=== PATIENT | female | born 1960 | race Caucasian/White ===

== ENCOUNTER → 2017-10-16 | Outpatient (CLI) | payer OTHER ==
--- NOTE | 2017-10-20 16:31 | Diagnostic Imaging Report ---
#[id number] - MGSCRBIL #BILATERAL DIGITAL SCREENING MAMMOGRAM WITH CAD: 10/16/2017 Comparison is made to exam dated: 07/27/2016 mammogram - [facility]. Current study contains 4 films. There are scattered fibroglandular elements in both breasts. Current study was also evaluated with a Computer Aided Detection (CAD) system. There are benign calcifications in both breasts. No significant masses, calcifications, or other findings are seen in either breast. There has been no significant interval change. IMPRESSION: BENIGN There is no mammographic evidence of malignancy. A 1 year screening mammogram is recommended. The patient will be notified by letter of the results. Kevyn calloway/amita:10/20/2017 13:17:44 Smash Hand: Khushbu ACKERMAN(Rene)(M), [facility] letter sent: Compared to Prior B9 Mammogram BI-RADS: 2 Benign
== END | disposition home or self-care (01) ==
LOC: MAMMO 13:24
PROVIDERS: ATTEND Specialist
DX: Z12.31 Encounter for screening mammogram for malignant neoplasm of breast (principal)
CPT/HCPCS: 77067

== ENCOUNTER → 2018-01-01 | Outpatient (CLI) | payer OTHER ==
--- NOTE | 2018-01-01 13:43 | Diagnostic Imaging Report ---
PROCEDURE:CT CHEST WITHOUT CONTRAST COMPARISON:None. INDICATIONS: LUNG NODULE TECHNIQUE: Axial CT images of the chest were obtained from the lung apices through the adrenal glands without contrast. Coronal and sagittal reformations were made available for review. RADIATION DOSE: Total DLP: 555.8 mGy*cm Estimated effective dose: (DLP x 0.014 x size factor) mSv FINDINGS: Lymph nodes: No enlarged axillary, supraclavicular, mediastinal, or hilar lymph nodes. Thyroid/base of neck: Unremarkable. Heart \T\ Mediastinum:The heart is normal in size. Aorta and pulmonary artery are normal in size and morphology. Trace pericardial effusion. The esophagus is normal. Lungs: Right lung: Noncalcified nodule along the minor fissure measures 3 mm (image 60). Left lung: Calcified nodule in the anterior upper lobe measures 4 mm (2). Noncalcified nodule in the lateral upper lobe measures 3 mm (image 50). . Pleura: No pleural effusion or pneumothorax. Upper abdomen:There is diffuse hypoattenuation of the liver suggestive steatosis. Diffuse fatty atrophy of the pancreas without ossification or ductal dilatation. This was portions of the spleen, adrenal glands, and kidneys are unremarkable. Musculoskeletal:Mild degenerative changes of the lower cervical/upper lumbar spine. No focal osseous lesions. Soft tissues are unremarkable. CONCLUSION: 1. Calcified granuloma in the left upper lobe and tiny noncalcified nodules in the right and left upper lobes. Recommend annual surveillance with low dose screening CT of the chest if there are risk factors for malignancy. 2. Hepatic steatosis. Dictated by: Martita Givens M.D. on 01/01/2018 at 13:47 Electronically approved by: Martita Givens M.D. on 01/01/2018 at 13:47
== END ==
LOC: CT 11:38
PROVIDERS: ATTEND Internal Medicine
DX: R91.1 Solitary pulmonary nodule (principal)
CPT/HCPCS: 71250

== ENCOUNTER → 2019-02-04 | Outpatient (CLI) | payer BC ==
--- NOTE | 2019-02-04 12:49 | Diagnostic Imaging Report ---
EXAM: CT Chest WITHOUT intravenous contrast 02/04/2019 11:40 AM INDICATION: Pulmonary nodule COMPARISON: None TECHNIQUE: Chest was scanned utilizing a multidetector helical scanner from the lung apex through the level of the adrenal glands without administration of IV contrast. Coronal and sagittal reformations were obtained. Routine protocol was performed. IV CONTRAST: None RADIATION DOSE: Total DLP: 247.1 mGy*cm. Dose modulation, iterative reconstruction, and/or weight based adjustment of the mA/kV was utilized to reduce the radiation dose to as low as reasonably achievable. COMPLICATIONS: None FINDINGS: LINES/ TUBES: None. LUNGS AND AIRWAYS: The central airways are patent. No focal consolidation or pulmonary edema. Left upper lobe 5 mm calcified granuloma (series 2 image 57). No suspicious pulmonary nodules. PLEURA: The pleural spaces are clear. HEART AND MEDIASTINUM: The thyroid gland is absent. No supraclavicular, mediastinal, or hilar lymphadenopathy. No axillary, subpectoral, or internal mammary lymphadenopathy. The heart is not enlarged. No pericardial effusion. Scattered atherosclerotic calcifications of the thoracic aorta. UPPER ABDOMEN: Limited noncontrast enhanced images of the upper abdomen demonstrate no visible abnormality in the partially visualized liver, spleen, pancreas, adrenals or minimally visualized kidneys. BONES: The visualized bony thorax is within normal limits. SOFT TISSUES: Unremarkable. IMPRESSION: No focal pneumonia or pulmonary edema. No suspicious pulmonary nodules. Signed by: Sixto Roberson MD on 02/04/2019 12:45 PM
--- NOTE | 2019-02-11 08:21 | Diagnostic Imaging Report ---
#[id number] - MGSCRBIL #BILATERAL DIGITAL SCREENING MAMMOGRAM WITH CAD: 02/04/2019 CLINICAL: Routine screening. Comparison is made to exams dated: 10/16/2017 mammogram and 07/27/2016 mammogram - [facility]. There are scattered fibroglandular elements in both breasts. Current study was also evaluated with a Computer Aided Detection (CAD) system. There are benign calcifications in both breasts. There also are benign masses in both breasts. No significant masses, calcifications, or other findings are seen in either breast. There has been no significant interval change. IMPRESSION: BENIGN There is no mammographic evidence of malignancy. A 1 year screening mammogram is recommended. The patient will be notified by letter of the results. ADAMS FAYE M.D., mc/amita:02/08/2019 11:13:26 Taker Down: Khushbu ACKERMAN(Rene)(M), [facility] letter sent: Normal Exam Mammogram BI-RADS: 2 Benign
== END ==
LOC: CT 11:30
PROVIDERS: ATTEND Internal Medicine
DX: Z12.31 Encounter for screening mammogram for malignant neoplasm of breast (principal); R91.8 Other nonspecific abnormal finding of lung field
CPT/HCPCS: 71250; 77067

== ENCOUNTER → 2020-12-17 | Outpatient (CLI) | payer BC | LOC: MAMMO 10:42 | PROVIDERS: ATTEND Internal Medicine | DX: Z12.31 Encounter for screening mammogram for malignant neoplasm of breast (principal) | CPT/HCPCS: 77067 ==

== ENCOUNTER 2022-11-29 18:05 | Emergency (ER) | payer BC ==
[~2022-11-29] VITALS: Ht 162.6 cm; Wt 81.2 kg
[2022-11-29] MEDS ORDERED: FAMOTIDINE 20 MG/2 ML VIAL IV STA (19:23)
[2022-11-29 19:24] VITALS: O2SAT 99
[2022-11-29 20:13] LABS: BASOPHILS # (AUTO) 0.1 (0.0-0.1); EOSINOPHILS # (AUTO) 0.1 (0.0-0.4); HEMATOCRIT 41.6 % (34.2-44.1); LYMPHOCYTES # (AUTO) 1.8 (1.0-3.2); LYMPHOCYTES % 30.3 % (18.0-39.1); MEAN CORPUSCULAR HEMOGLOBIN 30.2 pg (28-32); MEAN CORPUSCULAR HGB CONC 33.7 g/dL (31-35); MEAN CORPUSCULAR VOLUME 89.7 fL (81-99); MONOCYTES # (AUTO) 0.5 (0.2-0.8); NEUTROPHILS # (AUTO) 3.5 (2.1-6.9); NEUTROPHILS % 57.5 % (38.7-80.0); PLATELET COUNT 314 x10e3/uL (140-360); RED BLOOD COUNT 4.64 x10e6/uL (3.6-5.1); RED CELL DISTRIBUTION WIDTH 12.9 % (11.7-14.4)
[2022-11-29 20:29] LABS: ALBUMIN 4.7 g/dL (3.5-5.0); ALBUMIN/GLOBULIN RATIO 1.1 (0.8-2.0); ANION GAP 19.1 mmol/L (8-16); CREATININE, SERUM 1.54 mg/dL (0.57-1.11); POTASSIUM 3.1 mmol/L (3.5-5.1)
[2022-11-29] MEDS ORDERED: SODIUM CHLORIDE 0.9% 1000ML 1,000 ML IV STA (20:36)
[2022-11-29 20:38] LABS: CREATINE KINASE MB 1.7 ng/mL (0-5.0)
[2022-11-29] MEDS ORDERED: IOPAMIDOL 370 MG/ML 100 ML INFUS..BTL INJ ONE (20:38)
[2022-11-29] MEDS ORDERED: ULTRAM 50MG50 MG PO ×2 (22:46→22:48)
[2022-11-29] MEDS ORDERED: ONDANSETRON ODT4 MG PO ×2 (22:46→22:48)
== END 2022-11-30 05:28 | disposition home or self-care (01) ==
LOC: ER 19:00
DX: R10.13 Epigastric pain (principal); R11.0 Nausea; K76.0 Fatty (change of) liver, not elsewhere classified
CPT/HCPCS: 36415; 74177; 80053; 82550; 82553; 83690; 84484; 85025; 99284; Q9967

== ENCOUNTER → 2022-12-14 | Outpatient (CLI) | payer BC ==
[~2022-12-14] MED LIST: ONDANSETRON ODT4 MG PO; ULTRAM 50MG50 MG PO
== END ==
LOC: MAMMO 14:39
PROVIDERS: ATTEND Internal Medicine
DX: Z12.31 Encounter for screening mammogram for malignant neoplasm of breast (principal)
CPT/HCPCS: 77067

== ENCOUNTER → 2025-01-07 | Outpatient (REF) | payer MEDICARE | LOC: MAMMO 12:46 | PROVIDERS: ATTEND Internal Medicine | DX: Z12.31 Encounter for screening mammogram for malignant neoplasm of breast (principal) | CPT/HCPCS: 77067 ==